=== PATIENT | male | born 1995 | race Caucasian/White ===

== ENCOUNTER 2021-10-14 07:16 | Day surgery (SDC) | payer MEDICAID, SELFPAY ==
--- NOTE | 2021-10-14 | IMM_PTH ---
PATIENT: CRUZ HUGHES LOC: [facility] U#:[id number] AGE/SX: 26/M ROOM: RE10/14/[address]: Dr. Shawn Galeas DO : 1995 BED: DIS: 10/14/2021 SPEC #: [id number] RECD: 10/15/21 13:45 STATUS: AUDREY REQ #: [id number] ODALYS: 10/14/21 00:[address]: Shawn Galeas DEPT: IMMUNOHISTOCHEMISTRY RECD BY: Le Ty ENTERED: 10/15/21 13:46 SP TYPE: IMMUNO OTHR DR: Madison Cruz, EMERGENCY SERVICES DIRECTOR-C Tissues: Esophagus, NOS Procedures: P53 (initial) KI-67 (add) PHYSICIAN & [place] [id number] SPECIMEN INFORMATION: Tissue Source: Distal esophagus biopsy Clinical Info: Iron deficiency anemia, GERD Specimen Number: [id number] CPT code: 16865, 38072 METHODOLOGY: Deparaffinized sections of prefer/formalin-fixed tissue or PAP/DQ stained slides are incubated with monoclonal/polyclonal antibodies/oligonucleotide probes. Localization is made via biotin free immunoperoxidase method. Appropriate controls are performed and reacted as expected. Results on target cell population are indicated in the following table: RESULTS: ANTIBODY / CLONE RESULT P53 (DO-7) negative Ki-67 (30-9) positive, low These tests were developed and their performance characteristics determined by [facility]. They may not have been cleared or approved by the U.S. Food and Drug Administration. The FDA has determined that such clearance or approval is not necessary. The above immunohistochemical/dualISH markers are ordered and reviewed by the Pathologist. INTERPRETATION: Distal esophagus, biopsy: Negative for dysplasia. SJ:valerio 10/16/2021
[2021-10-14 07:50] VITALS: BP 80/46; PULSE 88; RESP 16; TEMP 36.8; O2SAT 98; BMI 16.9
[2021-10-14] MEDS: Lactated Ringers 1,000 ML 30 ML IV (08:05)
--- NOTE | 2021-10-14 08:15 | EGD_PTH ---
PATIENT: CRUZ HUGHES LOC: [facility] U#:[id number] AGE/SX: 26/M ROOM: RE10/14/[address]: Dr. Shawn Galeas DO : 1995 BED: DIS: 10/14/2021 SPEC #: [id number] RECD: 10/14/21 10:41 STATUS: AUDREY SERGE #: [id number] ODALYS: 10/14/21 08:[address]: Shawn Galeas DEPT: SURGICAL PATHOLOGY RECD BY: Leslie Blanco ENTERED: 10/14/21 11:23 SP TYPE: EGD BIOPSY OT DR: Madison Cruz, COMMUNITY WORKER-C Tissues: Esophagus, NOS Procedures: Special Stain Group II Surgery Specimen Level IV Alcian Blue/PAS (control) HEADER OPERATION: EGD ([employer]) PRE-OP DIAGNOSIS: Iron deficiency anemia, GERD TISSUE SUBMITTED: Distal esophagus biopsy MICROSCOPIC DIAGNOSIS Distal esophagus, biopsy: Fragments of gastroesophageal mucosa with ulceration, acute and chronic inflammation and granulation tissue reaction. 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 Negative for dysplasia. See comment. ROBIN:valerio 10/15/2021 COMMENT Alcian blue/PAS stain with matched control is used in the evaluation of the specimen. Immunohistochemistry ([id number]) for P53 and Ki-67 will be performed and results will be reported separately. MICROSCOPIC DESCRIPTION Slides are reviewed. GROSS DESCRIPTION Received in fixative is one container labeled with the patient's name and designated distal esophagus biopsy. The specimen consists of multiple irregular fragments of light soto soft tissue that in aggregate measure 0.8 x 0.2 x 0.1 cm. The specimen is totally submitted in one cassette. / ROBIN:valerio 10/14/21 TC:2 CPT: 99068, 32385
--- NOTE | 2021-10-14 08:17 | PCM.HP.BLA ---
History and Physical Date of Admission: 10/14/21 Medications folic acid 1 mg tablet 2 mg PO DAILY tab 07/01/21 [History Confirmed 09/11/21] pantoprazole 40 mg tablet,delayed release 40 mg PO BID tab 07/01/21 [History Confirmed 09/11/21] quetiapine 400 mg tablet 400 mg PO BID 07/01/21 [History Confirmed 09/11/21] risperidone 0.5 mg disintegrating tablet 0.5 mg PO DAILY 07/01/21 [History Confirmed 09/11/21] [facility] Medical History (Updated 07/01/21 @ 11:[address] Kelly Norton MD) Anemia Esophagitis Folic acid deficiency GERD (gastroesophageal reflux disease) Iron deficiency anemia Mental disability Thalassemia trait Surgical History (Updated 07/01/21 @ 10:17 by Cnoy Torres) History of ear surgery History of eye surgery History of tooth extraction Family History (Updated 07/01/21 @ 10:19 by Cony Torres) Grandfather History of esophageal cancer Diabetes Hypertension Grandmother Hypertension Other Colon cancer Social History (Updated 07/01/21 @ 10:21 by Cony Torres) Smoking Status: Never smoker second hand exposure: No alcohol intake: never substance use type: does not use seatbelt use: always do you feel safe at home: Yes HPI HPI Chief Complaint: Anemia Details: CRUZ HUGHES, is a 26 M who presents to the office today for He has difficulty with eating. Normal sized bite sizes get stuck and he will vomit, he shows discomfort by grabbing his shoulder and his sister then knows to stop with food intake. Swallow study performed at [place] and showed that passage of food through his esophagus to his stomach was very slow. EGD performed in May during inpatient hospitalization and found to have a lot of irritation in throat and stomach he was prescribed PPI BID and carafate and iron. He also received a blood transfusion for hemoglobin of 5. He is being seen by hematology. Sister reports that each morning he wakes up with brown spots on his pillow. He occasionally coughs during the night. Continues to be on Protonix 40mg QAM. ROS ENT ENT: Positive for difficulty swallowing Resp Respiratory: Positive for wheezing Gastro GI: Positive for difficulty swallowing and vomiting Aller/Imm Allergy/Immunologic: Positive for wheezing Exam Const General: cooperative and comfortable Nutritional Appearance: average body habitus and well nourished [facility] Head: normal to inspection Ears: hearing grossly normal bilaterally Nose: external nose normal Face and sinus: normal facial exam Mouth: oral mucosae normal Throat: posterior oropharynx normal Eyes General: appearance normal, both eyes and all related structures Neck Neck: normal visual inspection Chest Chest palpation & inspection: normal inspection of the chest and normal palpation of entire chest wall Resp Effort & Inspection: normal respiratory effort Auscultation: Bilateral: Clear to Auscultation Cardio Palpation: normal PMI Rate: regular rate Rhythm: regular rhythm GI Inspection: normal to inspection Auscultation: normal bowel sounds Percussion: normal to percussion Palpation: no hepatosplenomegaly Skin General: no rashes or lesions noted Neuro General: patient alert Extrem General: normal to inspection Psych Affect: normal affect Quality Reporting Tobacco Screening ([facility] 138) Smoking Status: Never smoker Assessment and Plan Assessment and Plan (1) Iron deficiency anemia: Status: Chronic Plan - Dr. Escobar Friend, DO: We will evaluate his upper GI tract for any signs of iron for his anemia including celiac disease or eosinophilic diseases. (2) GERD (gastroesophageal reflux disease): Status: Chronic Qualifiers: Esophagitis presence: with esophagitis Esophagitis bleeding: unspecified whether hemorrhage Qualified Code(s): K21.00 - Gastro-esophageal reflux disease with esophagitis, without bleeding Plan - Dr. Escobar Friend, DO: He has esophageal dysphagia. Hopefully with the administration of pantoprazole twice a day this will help esophageal dysphagia. We will evaluate his esophagus accordingly and perform balloon dilation if needed for his esophageal dysphagia. Coding Level of Care Code Off vis,new,level 3 Diagnoses Iron deficiency anemia D50.9 GERD (gastroesophageal reflux disease) K21.00 Esophagitis presence: with esophagitis Esophagitis bleeding: unspecified whether hemorrhage This is an updated H&P from when the patient was seen in the office. No changes were seen.
[2021-10-14 09:27] VITALS: BP 109/67; BP 80/46; PULSE 92; RESP 16; TEMP 36.1; O2SAT 98
--- NOTE | 2021-10-14 09:29 | OP.EGD_ITS ---
Patient Name: Sp Barker Procedure Date: 10/14/2021 8:18 AM Date of : 1995 Age: 26 Procedure: Upper GI endoscopy Indications: Iron deficiency anemia, Dysphagia Providers: Shawn Galeas DO Medicines: See the Anesthesia note for documentation of the administered medications Patient Profile: This is a 26 year old male. Refer to note in patient chart for documentation of history and physical. Patient has symptoms of acute dysphagia, acute odynophagia, chronic regurgitation and acute throat burning. Complications: No immediate complications. Procedure: Pre-Anesthesia Assessment: - Prior to the procedure, a History and Physical was performed, and patient medications and allergies were reviewed. The risks and benefits of the procedure and the sedation options and risks were discussed with the patient. All questions were answered and informed consent was obtained. Patient identification and proposed procedure were verified by the physician in the pre-procedure area. Mental Status Examination: alert and oriented. Airway Examination: normal oropharyngeal airway and neck mobility. Respiratory Examination: clear to auscultation. CV Examination: normal. Prophylactic Antibiotics: The patient does not require prophylactic antibiotics. Prior Anticoagulants: The patient has taken no previous anticoagulant or antiplatelet agents. ASA Grade Assessment: II - A patient with mild systemic disease. After reviewing the risks and benefits, the patient was deemed in satisfactory condition to undergo the procedure. The anesthesia plan was to use moderate sedation / analgesia (conscious sedation). Immediately prior to administration of medications, the patient was re-assessed for adequacy to receive sedatives. The heart rate, respiratory rate, oxygen saturations, blood pressure, adequacy of pulmonary ventilation, and response to care were monitored throughout the procedure. The physical status of the patient was re-assessed after the procedure. After obtaining informed consent, the endoscope was passed under direct vision. Throughout the procedure, the patient's blood pressure, pulse, and oxygen saturations were monitored continuously. The Endoscope was introduced through the mouth, and advanced to the second part of duodenum. The upper GI endoscopy was accomplished without difficulty. The patient tolerated the procedure well. Moderate Sedation: Moderate (conscious) sedation was administered by the endoscopy nurse and supervised by the endoscopist. The patient's oxygen saturation, heart rate, blood pressure and response to care were monitored. Total physician intraservice time was 15 minutes. Scope In: 9:12:35 AM Scope Out: 9:21:25 AM Total Procedure Duration Time 0 hours 8 minutes 50 seconds Findings: LA Grade D (one or more mucosal breaks involving at least 75% of esophageal circumference) esophagitis with bleeding was found 34 to 35 cm from the incisors. Biopsies were taken with a cold forceps for histology. Verification of patient identification for the specimen was done. Estimated blood loss was minimal. One benign-appearing, intrinsic stenosis was found 34 to 38 cm from the incisors. This stenosis was severe and measured 2 mm (inner diameter) x 3 cm (in length). The stenosis was traversed after dilation. A TTS dilator was passed through the scope. Dilation with a 15-16.5-18 mm balloon dilator was performed to 16 mm. The dilation site was examined and showed complete resolution of luminal narrowing. Estimated blood loss was minimal. The entire examined stomach was normal. The second portion of the duodenum was normal. Impression: - LA Grade D reflux esophagitis. Biopsied. - Benign-appearing esophageal stenosis. Dilated. - Normal stomach. - Normal second portion of the duodenum. Recommendation: - Discharge patient to home. - Resume previous diet. - Use Protonix (pantoprazole) 40 mg PO BID for 8 weeks. - Continue present medications. Procedure Code(s): --- Professional --- 98485, Esophagogastroduodenoscopy, flexible, transoral; with transendoscopic balloon dilation of esophagus (less than 30 mm diameter) 04290, 59, Esophagogastroduodenoscopy, flexible, transoral; with biopsy, single or multiple 66527, 59, Moderate sedation services provided by the same physician or other qualified health health care / medical job titles performing the diagnostic or therapeutic service that the sedation supports, requiring the presence of an independent trained observer to assist in the monitoring of the patient's level of consciousness and physiological status; initial 15 minutes of intraservice time, patient age 5 years or older CPT copyright 2017 [employer]. All rights reserved. The codes documented in this report are preliminary and upon commercial green retrofit architect review may be revised to meet current compliance requirements. Shawn Galeas DO 10/14/2021 9:28:32 AM This report has been signed electronically. Number of Addenda: 1 Note Initiated On: 10/14/2021 8:18 AM Addendum Number: 1 Addendum Date: 06/25/2022 7:22:39 AM MAC was used instead of moderate sedation for the patient. Shawn Galeas DO 06/25/2022 7:22:43 AM This report has been signed electronically.
[2021-10-14 09:30] VITALS: BP 111/71; BP 80/46; PULSE 93; RESP 16; O2SAT 96
[2021-10-14 09:35] VITALS: BP 80/46; BP 96/69; PULSE 89; RESP 16; O2SAT 98
[2021-10-14 09:40] VITALS: BP 118/73; BP 131/82; BP 80/46; PULSE 86; PULSE 88; RESP 16; TEMP 36.1; O2SAT 96
[2021-10-14 10:12] VITALS: BP 80/46
== END 2021-10-14 10:14 ==
LOC: EN 07:23 → AC 07:23
PROVIDERS: PCP Nurse Practitioner Family; Referring Provider Nurse Practitioner Family; Visit Provider Internal Medicine Gastroenterology
PROC: 0DJ08ZZ Inspection of Upper Intestinal Tract, Via Natural or Artificial Opening Endoscopic (ICD-10-PCS; CPT 43235; principal; 2021-10-14 08:10)
DX: K21.00 Gastro-esophageal reflux disease with esophagitis, without bleeding (principal); K22.2 Esophageal obstruction; D50.9 Iron deficiency anemia, unspecified; F79 Unspecified intellectual disabilities; F80.9 Developmental disorder of speech and language, unspecified; Z79.899 Other long term (current) drug therapy
CPT/HCPCS: 43239; 43249; 87426; 88305; 88313; 88341; 88342; J7120; J2405

== ENCOUNTER 2022-04-22 11:14 | Day surgery (SDC) | payer MEDICAID, SELFPAY ==
--- NOTE | 2022-04-22 | IMM_PTH ---
PATIENT: CRUZ HUGHES LOC: [facility] U#:[id number] AGE/SX: 27/M ROOM: RE04/22/[address]: Dr. Shawn Galeas DO : 1995 BED: DIS: 04/22/2022 SPEC #: [id number] RECD: 04/24/22 13:31 STATUS: AUDREY REPurnima #: [id number] ODALYS: 04/22/22 00:[address]: Shawn Galeas DEPT: IMMUNOHISTOCHEMISTRY RECD BY: Le Ty ENTERED: 04/24/22 13:31 SP TYPE: IMMUNO OTHR DR: Madison Cruz, SLACKMAN-C Tissues: Esophageal mucous membrane Procedures: P53 (initial) KI-67 (add) PHYSICIAN & [place] [id number] SPECIMEN INFORMATION: Tissue Source: Distal esophagus Clinical Info: Iron deficiency anemia, GERD Specimen Number: [id number] CPT code: 04076, 73334 METHODOLOGY: Deparaffinized sections of prefer/formalin-fixed tissue or PAP/DQ stained slides are incubated with monoclonal/polyclonal antibodies/oligonucleotide probes. Localization is made via biotin free immunoperoxidase method. Appropriate controls are performed and reacted as expected. Results on target cell population are indicated in the following table: RESULTS: ANTIBODY / CLONE RESULT P53 (DO-7) negative Ki-67 (30-9) positive, very low These tests were developed and their performance characteristics determined by [facility]. They may not have been cleared or approved by the U.S. Food and Drug Administration. The FDA has determined that such clearance or approval is not necessary. The above immunohistochemical/dualISH markers are ordered and reviewed by the Pathologist. INTERPRETATION: Distal esophagus, biopsy: Negative for dysplasia. ROBIN:valerio 04/25/2022
[2022-04-22] MEDS: Lactated Ringers 1,000 ML 15 ML IV (11:30)
[2022-04-22 11:37] VITALS: BP 107/88; PULSE 76; RESP 18; TEMP 36.3; O2SAT 100; BMI 14.7
--- NOTE | 2022-04-22 12:08 | HP.PCM_ITS ---
History and Physical Date of Admission: 04/22/22 ELENI HUGHES is a 26 M who presents to the office today for Last visit 09/12/21 for evaluation of iron deficiency anemia and GERD. Symptoms last visit included difficulty swallowing with lodging and emesis. Iron deficiency anemia ? EGD for possible celiac disease or eosinophilic disease. GERD ? Start PPI BID. EGD with possible dilation. EGD performed 10/14/21. EGD ? LA Grade D reflux esophagitis. Benign appearing esophageal stenosis, dilated. 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 Continue PPI and Carafate therapy. Continues to have gag reflex with every meal at least 1-2 times. Meals are puree texture. Doing well with the PPI and Carafate. ROS Const Constitutional: Positive for weight change (expected gain) ENT ENT: Positive for difficulty swallowing Gastro GI: Positive for difficulty swallowing Endo Endocrine: Positive for weight change (expected gain) Exam Const General: cooperative and comfortable Nutritional Appearance: average body habitus and well nourished [facility] Head: normal to inspection Ears: hearing grossly normal bilaterally Nose: external nose normal Face and sinus: normal facial exam Mouth: oral mucosae normal Throat: posterior oropharynx normal Eyes General: appearance normal, both eyes and all related structures Neck Neck: normal visual inspection Chest Chest palpation & inspection: normal inspection of the chest and normal palpation of entire chest wall Resp Effort & Inspection: normal respiratory effort Auscultation: Bilateral: Clear to Auscultation Cardio Palpation: normal PMI Rate: regular rate Rhythm: regular rhythm GI Inspection: normal to inspection Auscultation: normal bowel sounds Percussion: normal to percussion Palpation: no hepatosplenomegaly Skin General: no rashes or lesions noted Neuro General: patient alert Extrem General: normal to inspection Psych Affect: normal affect Quality Reporting Tobacco Screening ([facility]) Smoking Status: Never smoker Assessment and Plan Assessment and Plan (1) Iron deficiency anemia: ?Status:?Chronic ?Plan - Dr. Escobar Friend, DO: Reviewed that his iron deficiency anemia was coming from severe erosive esophagitis with bleeding in the esophagus and stricturing.? He is status post dilation of the esophagus and his dysphagia is a lot better. (2) GERD (gastroesophageal reflux disease): ?Status:?Chronic ?Qualifiers: ?Esophagitis presence:?with esophagitis??Esophagitis bleeding:? unspecified whether hemorrhage? Qualified Code(s):?K21.00 - Gastro-esophageal reflux disease with esophagitis, without bleeding ?Plan - Dr. Escobar Friend, DO: He was started on Carafate liquid therapy what he is taking twice a day.? He will take the till finished.-PPI twice a day.? To repeat endoscopy approximately 3 months. (3) Barretts esophagus: ?Status:?Acute ?Plan - Dr. Escobar Friend, DO: We will perform little biopsies in 3 months after he undergoes EGD with further dilation.? His sister is a power of city attorney is okay with this plan. I have re-examined the patient. There are no clinical changes since date of exam.
--- NOTE | 2022-04-22 13:00 | EGD_PTH ---
PATIENT: CRUZ HUGHES LOC: [facility] U#:[id number] AGE/SX: 27/M ROOM: RE04/22/[address]: Dr. Shawn Galeas DO : 1995 BED: DIS: 04/22/2022 SPEC #: [id number] RECD: 04/22/22 14:53 STATUS: AUDREY REPurnima #: [id number] ODALYS: 04/22/22 13:[address]: Shawn Galeas DEPT: SURGICAL PATHOLOGY RECD BY: Leslie Blanco ENTERED: 04/23/22 12:08 SP TYPE: EGD BIOPSY OT DR: Madison Cruz, ENGINE ROOM HELPER-C Tissues: Esophagus, NOS Procedures: Special Stain Group II Surgery Specimen Level IV Alcian Blue/PAS (control) HEADER OPERATION: EGD ([facility]) with biopsy and dilation PRE-OP DIAGNOSIS: Iron deficiency anemia, GERD TISSUE SUBMITTED: Distal esophagus biopsy MICROSCOPIC DIAGNOSIS Distal esophagus, biopsy: Fragments of gastroesophageal mucosa with focal intestinal metaplasia (goblet cell metaplasia), 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 Extensive ulceration, moderate acute and chronic inflammation and granulation tissue reaction. Negative for dysplasia. See comment. ROBIN:valerio 04/24/2022 COMMENT Alcian blue/PAS stain with matched control is used in the evaluation of the specimen. Immunohistochemistry ([id number]) for P53 and Ki-67 will be performed and results will be reported separately. MICROSCOPIC DESCRIPTION Slides are reviewed. GROSS DESCRIPTION Received in fixative is one container labeled with the patient's name and designated distal esophagus. The specimen consists of multiple irregular fragments of light soto soft tissue that in aggregate measure 1 x 0.4 x 0.1 cm. The specimen is totally submitted in one cassette. / ROBIN:valerio 04/23/2022 TC:2 CPT: 96089, 62745
[2022-04-22 13:15] VITALS: BP 107/88; BP 116/68; PULSE 98; RESP 16; TEMP 36.6; O2SAT 98
--- NOTE | 2022-04-22 13:17 | OP.EGD_ITS ---
Patient Name: Sp Barker Procedure Date: 04/22/2022 12:52 PM Date of : 1995 Age: 27 Procedure: Upper GI endoscopy Indications: Dysphagia, Heartburn Providers: DO Antwan Wright MD: Albert Bradley Medicines: Monitored Anesthesia Care Patient Profile: This is a 27 year old male. Refer to note in patient chart for documentation of history and physical. Patient has symptoms of chronic dysphagia. Complications: No immediate complications. Procedure: Pre-Anesthesia Assessment: - Prior to the procedure, a History and Physical was performed, and patient medications and allergies were reviewed. The risks and benefits of the procedure and the sedation options and risks were discussed with the patient. All questions were answered and informed consent was obtained. Patient identification and proposed procedure were verified by the physician in the pre-procedure area. Mental Status Examination: alert and oriented. Airway Examination: normal oropharyngeal airway and neck mobility. Respiratory Examination: clear to auscultation. CV Examination: normal. Prophylactic Antibiotics: The patient does not require prophylactic antibiotics. Prior Anticoagulants: The patient has taken no previous anticoagulant or antiplatelet agents. After reviewing the risks and benefits, the patient was deemed in satisfactory condition to undergo the procedure. The anesthesia plan was to use moderate sedation / analgesia (conscious sedation). Immediately prior to administration of medications, the patient was re-assessed for adequacy to receive sedatives. The heart rate, respiratory rate, oxygen saturations, blood pressure, adequacy of pulmonary ventilation, and response to care were monitored throughout the procedure. The physical status of the patient was re-assessed after the procedure. After obtaining informed consent, the endoscope was passed under direct vision. Throughout the procedure, the patient's blood pressure, pulse, and oxygen saturations were monitored continuously. The gastroscope was introduced through the mouth, and advanced to the second part of duodenum. The upper GI endoscopy was accomplished without difficulty. The patient tolerated the procedure well. Moderate Sedation: Moderate (conscious) sedation was personally administered by an anesthesia professional. The following parameters were monitored: oxygen saturation, heart rate, blood pressure, respiratory rate, EKG, adequacy of pulmonary ventilation, and response to care. Scope In: 1:03:39 PM Scope Out: 1:10:24 PM Total Procedure Duration Time 0 hours 6 minutes 45 seconds Findings: LA Grade D (one or more mucosal breaks involving at least 75% of esophageal circumference) esophagitis with bleeding was found 31 to 38 cm from the incisors. Biopsies were taken with a cold forceps for histology. Verification of patient identification for the specimen was done. Coagulation for hemostasis using heater probe was successful. Estimated blood loss was minimal. One benign-appearing, intrinsic stenosis was found 34 to 37 cm from the incisors. This stenosis was severe and. The stenosis was traversed after dilation. A TTS dilator was passed through the scope. Dilation with an 18-19-20 mm balloon dilator was performed to 10 mm. The dilation site was examined and showed. Estimated blood loss was minimal. The entire examined stomach was normal. The duodenal bulb was normal. Impression: - LA Grade D reflux esophagitis. Biopsied. Treated with a heater probe. - Benign-appearing esophageal stenosis. Dilated. - Normal stomach. - Normal duodenal bulb. Recommendation: - Discharge patient to home. - Resume previous diet. - Continue present medications. - Await pathology results. Procedure Code(s): --- Professional --- 58564, 59, Esophagogastroduodenoscopy, flexible, transoral; with control of bleeding, any method 62777, Esophagogastroduodenoscopy, flexible, transoral; with transendoscopic balloon dilation of esophagus (less than 30 mm diameter) 97409, 59,51, Esophagogastroduodenoscopy, flexible, transoral; with biopsy, single or multiple CPT copyright 2017 [employer]. All rights reserved. The codes documented in this report are preliminary and upon excelsior machine tender review may be revised to meet current compliance requirements. Shawn Galeas DO 04/22/2022 1:16:39 PM This report has been signed electronically. Number of Addenda: 1 Note Initiated On: 04/22/2022 12:52 PM Addendum Number: 1 Addendum Date: 07/23/2022 6:31:37 AM MAC was used as sedation for this procedure. Shawn Galeas DO 07/23/2022 6:31:41 AM This report has been signed electronically.
--- NOTE | 2022-04-22 13:18 | OP.CCLET_ITS ---
07/23/2022 Albert Bradley Re : Upper GI endoscopy procedure for Sp Limon Anthony This procedure was performed on Friday, April 22, 2022. My impressions and recommendations are as follows: Impressions : - LA Grade D reflux esophagitis. Biopsied. Treated with a heater probe. - Benign-appearing esophageal stenosis. Dilated. - Normal stomach. - Normal duodenal bulb. Recommendations : - Discharge patient to home. - Resume previous diet. - Continue present medications. - Await pathology results. My findings are described in the full procedure note, which is enclosed. If I can be of further assistance, please feel free to contact me at . Sincerely, Shawn Galeas, 04/22/2022 1:16:39 PM This report has been signed electronically.
[2022-04-22 13:20] VITALS: BP 107/88; BP 112/73; PULSE 89; RESP 16; O2SAT 98
[2022-04-22 13:25] VITALS: BP 107/88; BP 108/78; PULSE 86; RESP 16; O2SAT 98
[2022-04-22 13:29] VITALS: BP 101/87; BP 107/88; PULSE 85; RESP 16; O2SAT 98
[2022-04-22 13:35] VITALS: BP 107/88
== END 2022-04-22 13:40 | disposition home or self-care (01) ==
LOC: EN 11:15 → AC 11:17
PROVIDERS: PCP Nurse Practitioner Family; Referring Provider Nurse Practitioner Family; Visit Provider Internal Medicine Gastroenterology
PROC: 0DJ08ZZ Inspection of Upper Intestinal Tract, Via Natural or Artificial Opening Endoscopic (ICD-10-PCS; CPT 43235; principal; 2022-04-22 12:55)
DX: K21.00 Gastro-esophageal reflux disease with esophagitis, without bleeding (principal); K22.70 Barrett's esophagus without dysplasia; K22.2 Esophageal obstruction; D50.9 Iron deficiency anemia, unspecified; Z79.899 Other long term (current) drug therapy
CPT/HCPCS: 43249; 43239; 43255; 88305; 88313; 88341; 88342; J7120; J2405

== ENCOUNTER 2022-12-02 06:10 | Day surgery (SDC) | payer MEDICAID, SELFPAY ==
[2022-12-02] VITALS (7 sets, daily range): BP systolic 95–137; BP diastolic 60–78; PULSE 85–102; RESP 14–16; TEMP 35.9–36.4; O2SAT 95–100; BMI 15.7
--- NOTE | 2022-12-02 | IMM_PTH ---
PATIENT: CRUZ HUGHES LOC: EN U#:[id number] AGE/SX: 27/M ROOM: RE12/02/[address]: Dr. Shawn Galeas DO : 1995 BED: DIS: 12/02/2022 SPEC #: [id number] RECD: 12/03/22 13:29 STATUS: AUDREY REPurnima #: [id number] ODALYS: 12/02/22 00:[address]: Shawn Galeas DEPT: IMMUNOHISTOCHEMISTRY RECD BY: Le Ty ENTERED: 12/03/22 13:29 SP TYPE: IMMUNO OTHR DR: Madison Cruz, REFRIGERATION TECH-C Tissues: Esophagus, NOS Procedures: P53 (initial) KI-67 (add) PHYSICIAN & INSTITUTION [place] [id number] SPECIMEN INFORMATION: Tissue Source: Distal esophagus Clinical Info: Dobbnis?s esophagus, iron deficiency anemia, GERD Specimen Number: [id number] CPT code: 52371, 06375 METHODOLOGY: Deparaffinized sections of prefer/formalin-fixed tissue or PAP/DQ stained slides are incubated with monoclonal/polyclonal antibodies/oligonucleotide probes. Localization is made via biotin free immunoperoxidase method. Appropriate controls are performed and reacted as expected. Results on target cell population are indicated in the following table: RESULTS: ANTIBODY / CLONE RESULT P53 (DO-7) negative Ki-67 (30-9) positive, low These tests were developed and their performance characteristics determined by [facility]. They may not have been cleared or approved by the U.S. Food and Drug Administration. The FDA has determined that such clearance or approval is not necessary. The above immunohistochemical/dualISH markers are ordered and reviewed by the Pathologist. INTERPRETATION: Distal esophagus, biopsy: Negative for dysplasia. ROBIN:valerio 12/04/2022
--- NOTE | 2022-12-02 06:35 | HP.PCM_ITS ---
History and Physical Date of Admission: 12/02/22 CRUZ HUGHES, is a 27 M who presents to the office today for a 2 week follow up after a EGD- 04.22.22. Cruz established with our clinic on 09/12/21 for evaluation of iron deficiency anemia and GERD. Symptoms included difficulty swallowing with lodging and emesis. Iron deficiency anemia ? EGD for possible celiac disease or eosinophilic disease. GERD ? Start PPI BID. EGD with possible dilation. EGD performed 10/14/21. EGD ? LA Grade D reflux esophagitis. Benign appearing esophageal stenosis, dilated. 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 Continue PPI and Carafate therapy. Continues to have gag reflex with every meal at least 1-2 times. Meals are puree texture. Doing well with the PPI and Carafate. EGD 04.22.22 Impression: ? - LA Grade D reflux esophagitis. Biopsied. ? Treated with a heater probe. ? - Benign-appearing esophageal stenosis. Dilated. ? - Normal stomach. ? - Normal duodenal bulb. Recommendation: ? - Discharge patient to home. ? - Resume previous diet. ? - Continue present medications. ? - Await pathology results. Pathology-?Fragments of gastroesophageal mucosa with focal intestinal metaplasia (goblet cell metaplasia), 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 Extensive ulceration, moderate acute and chronic inflammation and granulation tissue reaction. Negative for dysplasia. Today reports that he has had an excess in phlegm since the EGD which has caused him a sensitive gag reflex. Mom states that she has to liquify his food more since the EGD. Mom states that he has no problems with sweet foods. ROS Const Constitutional: No fatigue, fever(s), frequent falls, headache(s) or weight change ENT ENT: No headache(s) or difficulty swallowing Cardio Cardiology: No leg pain with exertion Gastro GI: No abdominal pain, bloating, change in bowel habits, constipation, diarrhea, heartburn, difficulty swallowing, Vomiting blood/hematemesis, Blood in stool, nausea/dyspepsia or vomiting Musc Musculoskeletal: No abnormal gait, joint pain, back pain, joint swelling, muscle cramps, muscle weakness, numbness, stiffness, tingling, Arthritis, sciatica, leg pain at night or leg pain with exertion Skin Skin: No dry skin, lesions, itchy eyes or rash Neuro Neurology: No abnormal gait, dizziness, frequent falls, headache(s), numbness, tingling, tremor(s), Increased tone in limbs, paralysis or seizures Psych Psychiatric: No anxiety, No depression, No paranoia, No Behavioral Problems, No Compulsive Behavior, No hyperactivity, No inattentiveness, No obsessions/compuls ions, Positive for Temper Tantrums and No suicidal ideation Endo Endocrine: No fatigue or weight change Aller/Imm Allergy/Immunologic: No itchy eyes Dandy/Lymp Hematologic/Lymphatic: No easy bleeding or easy bruising Quality Reporting Tobacco Screening ([facility] 138) Smoking Status: Never smoker Assessment and Plan Assessment and Plan (1) Barretts esophagus: ?Status:?Acute ?Plan: 3.? Dobbins's esophagus without dysplasia.? He will need to have ablation in the future.? For now we will increase his PPI up to twice a day. (2) Iron deficiency anemia: ?Status:?Chronic ?Qualifiers: ?Iron deficiency anemia type:?chronic blood loss? Qualified Code(s):? D50.0 - Iron deficiency anemia secondary to blood loss (chronic) ?Plan: I believe that he was iron deficient anemia secondary to bleeding that he experiences in his esophagus.? He underwent esophageal dilation with severe stricture in his distal esophagus.? He is able to eat better at this time.? However this is a recurring thing for him in regards of his esophageal dysphagia secondary to persistent esophageal stricture. (3) GERD (gastroesophageal reflux disease): ?Status:?Chronic ?Qualifiers: ?Esophagitis bleeding:?unspecified whether hemorrhage??Esophagitis presence:?with esophagitis? Qualified Code(s):?K21.00 - Gastro-esophageal reflux disease with esophagitis, without bleeding ?Plan: Due to the fact that he has such severe gastroesophageal reflux disease we should do a Jhonny fundoplication.? ? We will refer him surgery for Jhonny fundoplication. We will perform a repeat EGD and evaluate him further. I have examined the patient and the H&P has been reviewed. There are no clinical changes since date of exam.
[2022-12-02] MEDS: Lactated Ringers 1,000 ML 15 ML IV (06:43)
--- NOTE | 2022-12-02 07:15 | EGD_PTH ---
PATIENT: CRUZ HUGHES LOC: EN U#:[id number] AGE/SX: 27/M ROOM: RE12/02/[address]: Dr. Shawn Galeas DO : 1995 BED: DIS: 12/02/2022 SPEC #: [id number] RECD: 12/02/22 07:54 STATUS: AUDREY SERGE #: [id number] ODALYS: 12/02/22 07:[address]: Shawn Galeas DEPT: SURGICAL PATHOLOGY RECD BY: Riley Walter ENTERED: 12/02/22 09:04 SP TYPE: EGD BIOPSY OT DR: Madison Cruz, MISSILEMAN-C Tissues: Esophagus, NOS Procedures: Special Stain Group II Surgery Specimen Level IV Alcian Blue/PAS (control) HEADER OPERATION: EGD ([facility]), dilation PRE-OP DIAGNOSIS: Dobbins?s esophagus, iron deficiency anemia, GERD TISSUE SUBMITTED: Distal esophagus biopsy MICROSCOPIC DIAGNOSIS Distal esophagus, biopsy: Fragments of gastroesophageal mucosa with focal intestinal metaplasia (goblet cell metaplasia), consistent with Dobbins's esophagus. Extensive ulceration, acute and chronic inflammation and granulation tissue reaction. Negative for dysplasia. See comment. SJ:valerio 12/03/2022 COMMENT Immunohistochemistry ([id number]) for P53 and Ki-67 will be performed and results will be reported separately. Alcian blue/PAS stain with matched control is used in the evaluation of the specimen. MICROSCOPIC DESCRIPTION Slides are reviewed. GROSS DESCRIPTION Received in fixative is one container labeled with the patient's name and designated distal esophagus. The specimen consists of multiple irregular fragments of light soto soft tissue that in aggregate measure 1.0 x 0.3 x 0.1 cm. The specimen is totally submitted in one cassette. / AM:valerio 12/03/2022 TC:2 CPT: 83097, 74729
--- NOTE | 2022-12-02 07:33 | OP.CCLET_ITS ---
12/02/2022 Albert Bradley Re : Upper GI endoscopy procedure for Sp Limon Anthony This procedure was performed on Friday, December 02, 2022. My impressions and recommendations are as follows: Impressions : - LA Grade D erosive esophagitis. Biopsied. - No gross lesions in the stomach. - Normal second portion of the duodenum. - Benign-appearing esophageal stenosis. Dilated. Recommendations : - Discharge patient to home. - Resume previous diet. - Continue present medications. - Await pathology results. My findings are described in the full procedure note, which is enclosed. If I can be of further assistance, please feel free to contact me at . Sincerely, Shawn Galeas, 12/02/2022 7:32:29 AM This report has been signed electronically.
--- NOTE | 2022-12-02 07:33 | OP.EGD_ITS ---
Patient Name: Sp Barker Procedure Date: 12/02/2022 7:12 AM Date of : 1995 Age: 27 Procedure: Upper GI endoscopy Indications: Dysphagia Providers: Shawn Galeas DO Referring MD: Shawn Galeas DO Medicines: Monitored Anesthesia Care Patient Profile: This is a 27 year old male. Refer to note in patient chart for documentation of history and physical. Patient has symptoms of chronic dysphagia and dysphagia with both liquids and solids. Complications: No immediate complications. Procedure: Pre-Anesthesia Assessment: - Prior to the procedure, a History and Physical was performed, and patient medications and allergies were reviewed. The risks and benefits of the procedure and the sedation options and risks were discussed with the patient. All questions were answered and informed consent was obtained. Patient identification and proposed procedure were verified by the physician in the pre-procedure area. Mental Status Examination: alert and oriented. Airway Examination: normal oropharyngeal airway and neck mobility. Respiratory Examination: clear to auscultation. CV Examination: normal. Prophylactic Antibiotics: The patient does not require prophylactic antibiotics. Prior Anticoagulants: The patient has taken no previous anticoagulant or antiplatelet agents. After reviewing the risks and benefits, the patient was deemed in satisfactory condition to undergo the procedure. The anesthesia plan was to use monitored anesthesia care (MAC). Immediately prior to administration of medications, the patient was re-assessed for adequacy to receive sedatives. The heart rate, respiratory rate, oxygen saturations, blood pressure, adequacy of pulmonary ventilation, and response to care were monitored throughout the procedure. The physical status of the patient was re-assessed after the procedure. After obtaining informed consent, the endoscope was passed under direct vision. Throughout the procedure, the patient's blood pressure, pulse, and oxygen saturations were monitored continuously. The gastroscope was introduced through the mouth, and advanced to the second part of duodenum. The upper GI endoscopy was accomplished without difficulty. The patient tolerated the procedure well. Scope In: 7:20:38 AM Scope Out: 7:26:57 AM Total Procedure Duration Time 0 hours 6 minutes 19 seconds Findings: LA Grade D (one or more mucosal breaks involving at least 75% of esophageal circumference) esophagitis with bleeding was found 33 to 39 cm from the incisors. Biopsies were taken with a cold forceps for histology. Verification of patient identification for the specimen was done. Estimated blood loss was minimal. No gross lesions were noted in the entire examined stomach. The second portion of the duodenum was normal. One benign-appearing, intrinsic stenosis was found 34 to 36 cm from the incisors. This stenosis was severe and. The stenosis was traversed. A guidewire was placed and the scope was withdrawn. Dilation was performed with a Savary dilator with no resistance at 51 Fr. The dilation site was examined and showed moderate improvement in luminal narrowing. Estimated blood loss was minimal. Impression: - LA Grade D erosive esophagitis. Biopsied. - No gross lesions in the stomach. - Normal second portion of the duodenum. - Benign-appearing esophageal stenosis. Dilated. Recommendation: - Discharge patient to home. - Resume previous diet. - Continue present medications. - Await pathology results. Procedure Code(s): --- Professional --- 42155, Esophagogastroduodenoscopy, flexible, transoral; with insertion of guide wire followed by passage of dilator(s) through esophagus over guide wire 95608, 59, Esophagogastroduodenoscopy, flexible, transoral; with biopsy, single or multiple CPT copyright 2017 [employer]. All rights reserved. The codes documented in this report are preliminary and upon environmental lead review may be revised to meet current compliance requirements. Shawn Galeas DO 12/02/2022 7:32:29 AM This report has been signed electronically. Number of Addenda: 0 Note Initiated On: 12/02/2022 7:12 AM
== END 2022-12-02 08:01 | disposition home or self-care (01) ==
LOC: EN 06:11 → AC 06:13
PROVIDERS: PCP Nurse Practitioner Family; Referring Provider Nurse Practitioner Family; Visit Provider Internal Medicine Gastroenterology
PROC: 0DJ08ZZ Inspection of Upper Intestinal Tract, Via Natural or Artificial Opening Endoscopic (ICD-10-PCS; CPT 43235; principal; 2022-12-02 07:10)
DX: K22.70 Barrett's esophagus without dysplasia (principal); K22.2 Esophageal obstruction; D50.9 Iron deficiency anemia, unspecified; K21.01 Gastro-esophageal reflux disease with esophagitis, with bleeding; Z79.899 Other long term (current) drug therapy
CPT/HCPCS: 43248; 43239; 88305; 88313; 88341; 88342; J7120; C1769